=== PATIENT | female | born 1990 | race Caucasian/White ===

== ENCOUNTER 2017-07-14 19:13 | Emergency (ER) | payer OTHER ==
[~2017-07-14] VITALS: Ht 175.3 cm; Wt 83.6 kg
[~2017-07-14 19:13] MED LIST: AMOXICILLIN 50500 MG PO; AMOXICILLIN 8751 TAB PO; BCP TD; BUSPAR5 MG PO; NASACORT55 MCG/ACT NS; NO HOME MEDICATIONS; ORTHO TRI-CYCLE1 TAB PO; PHENERGAN W/CO120 ML PO; PRENATAL VITAMI1 TA5 PO
[2017-07-14 19:17] VITALS: BP 154/74; TEMP 97.2
[2017-07-14] MEDS ORDERED: VOLTAREN 75 DR75 MG PO (20:14)
[2017-07-14 20:43] VITALS: PULSE 86
== END 2017-07-14 20:49 | disposition home or self-care (01) ==
LOC: COL.ER 19:13
DX: S89.91XA Unspecified injury of right lower leg, initial encounter (principal); X50.0XXA Overexertion from strenuous movement or load, initial encounter; Y92.39 Other specified sports and athletic area as the place of occurrence of the external cause
CPT/HCPCS: L1846